=== PATIENT | male | born 1945 | race Caucasian/White ===

== ENCOUNTER 2017-10-22 15:01 | Emergency (ER) | payer MEDICARE, BC ==
[2017-10-22 15:49] VITALS: BP 128/79
[2017-10-22] MEDS ORDERED: Cephalexin CAP* 500 MG PO ONE (16:04)
[2017-10-22] MEDS ORDERED: predniSONE TAB* 20 MG PO ONE (16:04)
--- NOTE | 2017-10-22 16:05 | UC ---
Lower Extremity/Ankle HPI - HPI Summary HPI Summary: 72 yo male with right great toe pain/foot pain x 3 days Currently being worked up for right sciatica Had MRI today scheduled to see PMD tomorrow no injury no hx gout had meds changed recently after syncopal event - History of Current Complaint Chief Complaint: UCLowerExtremity Stated Complaint: RIGHT FOOT SWOLLEN AND INFLAMMED Time Seen by Provider: 10/22/17 15:25 Hx Obtained From: Patient Onset/Duration: Sudden Onset, Lasting Days Severity Initially: Moderate Severity Currently: Moderate Pain Intensity: 5 Pain Scale Used: 0-10 Numeric Aggravating Factor(s): Standing, Ambulation Alleviating Factor(s): Rest Able to Bear Weight: Yes - Risk Factors Gout Risk Factors: Age Over 40, Hypertension, Hyperlipidemia - Allergies/Home Medications Allergies/Adverse Reactions: Allergies Allergy/AdvReac Type Severity Reaction Status Date / Time No Known Allergies Allergy Verified 10/22/17 15:28 Home Medications: Home Medications Carvedilol TAB* [Coreg TAB*] 3.125 mg PO BID 10/22/17 [History Confirmed ] Multivitamin [Multivitamins] 0.5 cap PO DAILY 10/22/17 [History Confirmed ] Potassium Chlor TAB* [Klor Con ER TAB*] 10 meq PO DAILY 10/22/17 [History Confirmed 10/22/17] PMH/Surg Hx/FS Hx/Imm Hx Endocrine History: Dyslipidemia Cardiovascular History: Cardiac Disease, Hypertension - Surgical History Surgical History: Yes Surgery Procedure, Year, and Place: 4 cardiac stents placed in 2008. 2013 COLECTOMY FISTULA FROM DIVERTICULITIS - Family History Known Family History: Positive: Cardiac Disease, Hypertension, Diabetes - Social History Alcohol Use: Rare Substance Use Type: None Smoking Status (MU): Never Smoked Tobacco Review of Systems Constitutional: Negative Skin: Negative Eyes: Negative ENT: Negative Respiratory: Negative Cardiovascular: Negative Gastrointestinal: Negative Genitourinary: Negative Motor: Negative Neurovascular: Negative Musculoskeletal: Arthralgia Neurological: Negative Psychological: Negative Is Patient Immunocompromised?: No All Other Systems Reviewed And Are Negative: Yes Physical Exam Triage Information Reviewed: Yes Appearance: Well-Appearing, No Pain Distress, Well-Nourished Vital Signs: Initial Vital Signs Temp 98.1 F 10/22/17 15:32 Pulse 90 10/22/17 15:32 Resp 18 10/22/17 15:32 BP 128/79 10/22/17 15:32 Pulse Ox 99 10/22/17 15:32 Eyes: Positive: Conjunctiva Clear ENT: Negative: Nasal congestion, Nasal drainage, Trismus, Muffled voice, Hoarse voice Neck: Positive: Supple, Nontender Respiratory: Positive: Lungs clear, Normal breath sounds, No respiratory distress Cardiovascular: Positive: RRR, No Murmur, Pulses Normal Musculoskeletal: Positive: Other: - see image Neurological: Positive: Alert Psychological Exam: Normal Skin Exam: Normal Lower Extremity Course/Dx - Differential Dx/Diagnosis Provider Diagnoses: gout Discharge - Discharge Plan Condition: Stable Disposition: HOME Prescriptions: Cephalexin CAP* [Keflex CAP*] 500 mg PO QID #28 cap predniSONE [Deltasone] 40 mg PO DAILY #8 tab Patient Education Materials: Cellulitis (ED), Low Purine Diet (ED), Gout (ED) Referrals: Harini MCARTHUR,Payton [Primary Care Provider] - As Soon As Possible Additional Instructions: I suspect gout Will also treat for potential cellulitis see your MD as planned Images Feet (Multiple View): 1 - red/swollen/warm
== END 2017-10-22 16:22 | disposition home or self-care (01) ==
LOC: UCCORT 15:01
DX: M10.9 Gout, unspecified (principal)
CPT/HCPCS: 99212; A9270-GY; G0463; J7512

== ENCOUNTER 2019-01-22 16:20 | Emergency (ER) | payer MEDICARE, BC ==
[2019-01-22 17:05] VITALS: BP 150/71
--- NOTE | 2019-01-22 17:30 | UC ---
Laceration HPI - HPI Summary HPI Summary: 73-year-old male presents with laceration to his right thumb. States he was on a ladder that began 2 fall over and when he jumped down and he caused a flap laceration to the medial aspect of his right thumb. States injury occurred about 10:30 this morning. Denies any other injuries. Bleeding was controlled with direct pressure prior to arrival. Last tetanus was January 2015. - History Of Current Complaint Chief Complaint: UCLaceration Stated Complaint: RT THUMB LACERATION Time Seen by Provider: 01/22/19 17:22 Hx Obtained From: Patient Pain Intensity: 0 - Allergies/Home Medications Allergies/Adverse Reactions: Allergies Allergy/AdvReac Type Severity Reaction Status Date / Time No Known Allergies Allergy Verified 01/22/19 16:53 PMH/Surg Hx/FS Hx/Imm Hx Endocrine History: Dyslipidemia Cardiovascular History: Hypertension GI/ History: Diverticulitis - Surgical History Surgical History: Yes Surgery Procedure, Year, and Place: 4 cardiac stents placed in 2008. 2014 COLECTOMY FIST[place]A FROM DIVERTICULITIS - Family History Known Family History: Positive: Cardiac Disease, Hypertension, Diabetes - Social History Occupation: Retired Lives: Alone Alcohol Use: Rare Substance Use Type: None Smoking Status (MU): Never Smoked Tobacco - Immunization History Most Recent Tetanus Shot: 01/2015 Review of Systems All Other Systems Reviewed And Are Negative: Yes Constitutional: Positive: Negative Skin: Positive: Other - See HPI Respiratory: Positive: Negative Cardiovascular: Positive: Negative Gastrointestinal: Positive: Negative Genitourinary: Positive: Negative Musculoskeletal: Positive: Negative Neurological: Positive: Negative Is Patient Immunocompromised?: No Physical Exam - Summary Physical Exam Summary: GENERAL APPEARANCE: Well developed, well nourished, alert and cooperative, and appears to be in no acute distress. CARDIAC: Normal S1 and S2. No S3, S4 or murmurs. Rhythm is regular. There is no peripheral edema, cyanosis or pallor. Extremities are warm and well perfused. Capillary refill is less than 2 seconds. Peripheral pulses intact. LUNGS: Clear to auscultation without rales, rhonchi, wheezing or diminished breath sounds. ABDOMEN: Positive bowel sounds. Soft, nondistended, nontender. No guarding or rebound. No masses or hepatosplenomegally. MUSKULOSKELETAL: ROM intact to all extremities. No joint erythema or tenderness. Normal muscular development. Normal gait. SKIN: Flap laceration to the medial aspect of the left thumb with the distal portion of the flap missing. Bleeding controlled. No FB noted. Triage Information Reviewed: Yes Vital Signs: Initial Vital Signs Temp 98.1 F 01/22/19 16:57 Pulse 97 01/22/19 16:57 Resp 16 01/22/19 16:57 BP 150/71 01/22/19 16:57 Pulse Ox 98 01/22/19 16:57 Vital Signs Reviewed: Yes Procedures - Procedure Summary Procedure Summary: Procedure note: Laceration repair right thumb. The wound was copiously irrigated by the RN prior to wound repair. The wound was explored and no foreign bodies noted. The wound margins were then brought into good alignment and four 1/8 in SteriStrips were used to secure the flap laceration. Skin adhesive was then used to secure the edges of the wound. Total length of wound after repair was 4 cm. Estimated blood loss was minimal. A dressing was applied to the area. Anticipatory guidance, as well as standard post-procedure care was discussed with patient. Return precautions are given. The patient tolerated the procedure well without complications. Laceration Course/Dx - Course/Dx Course Of Treatment: 73-year-old male presents with laceration to his right thumb. States he was on a ladder that began 2 fall over and when he jumped down and he caused a flap laceration to the medial aspect of his right thumb. States injury occurred about 10:30 this morning. Denies any other injuries. Bleeding was controlled with direct pressure prior to arrival. Last tetanus was January 2015. Afebrile. Hypertensive otherwise vital signs stable. Patient had a large flap laceration to the medial aspect of his right thumb. The distal portion of the skin flap was missing. Reviewed treatment options including sutures versus use of Steri- Strips and skin adhesive and the patient is electing for the latter. I did discuss with the patient that there was a chance that the flap would not revascularize and that it may need to be eventually removed and the wound would need to heal by tertiary intention. The wound was copiously irrigated with normal saline by the RN prior to repair. I did explore the wound and no foreign body was noted. A total of four 1/8 in Steri-Strips were used to secure the skin flap in place and then skin adhesive was used to secure the wound margins. A dressing was then applied by the RN. Patient already has an appointment scheduled with his primary care provider on January 26, 2019 and he was encouraged to keep this and have the wound rechecked at that time. Wound care, anticipatory guidance, and warning symptoms were reviewed with the patient. Verbalizes understanding and agrees with plan of care. - Differential Dx - Laceration/Wound Differental Diagnoses: Laceration, Other - Avulsion - Diagnosis Provider Diagnosis: Avulsion of skin of left thumb Discharge - Sign-Out/Discharge Documenting (check all that apply): Patient Departure All imaging exams completed and their final reports reviewed: No Studies - Discharge Plan Condition: Stable Disposition: HOME Patient Education Materials: Finger Laceration (ED), Skin Adhesive Care (ED), Steristrips (ED) Referrals: Lavell Subramanian MD [Primary Care Provider] - 4 Days (As scheduled for wound check) Additional Instructions: Your laceration as repaired with a combination of skin adhesive and Steri- Strips. Due to the nature of the injury there is a chance that the skin flap may not have an enough blood supply and may eventually and fall off. If this happens the wound will need to heal from the inside out. The skin adhesive will slowly wear off over the next several days. Keep the adhesive dry for the next 24 hours. After 24 hours you may shower and wash your hands as ususal. Do not apply any lotions or ointments to the adhesive as this may dissolve the adhesive and cause the wound to reopen. The Steri-Strips will slowly peel up from the ends over the next few days. You may trim the ends as needed but do not pull off or you may reopen the wound. Keep the wound covered with a dressing. Change this at least once a day or anytime the dressing becomes wet or soiled. Take acetaminophen (Tylenol) or ibuprofen (Advil, Motrin) according to directions as needed for pain. Keep your appointment with your primary care provider on 01/26/2019 as scheduled for a wound check. Watch for signs of infection including fever greater than 100.5 F, severe pain not managed with with pain medicine, redness that spreads, swelling of the finger, pus draining from the wound, or any worsening of symptoms. Seek immediate medical attention if any of these occur. - Billing Disposition and Condition Condition: STABLE Disposition: Home
== END 2019-01-22 17:47 | disposition home or self-care (01) ==
LOC: UCCORT 16:20
DX: S61.001A Unspecified open wound of right thumb without damage to nail, initial encounter (principal); W23.0XXA Caught, crushed, jammed, or pinched between moving objects, initial encounter; I10 Essential (primary) hypertension
CPT/HCPCS: 12002; 99211; G0463